=== PATIENT | female | born 1975 ===

== ENCOUNTER 2021-07-21 00:26 | Outpatient (CLI) | payer MEDICAID, SELFPAY ==
--- NOTE | 2021-07-21 08:30 | DI.NM_ITS ---
Exam(s) NM HEPATOBILIARY SCAN GRP EXAM: NM HEPATOBILIARY SCAN GRP CLINICAL HISTORY: ABD PAIN, R10.9. TECHNIQUE: Nuclear hepatobiliary imaging was performed with IV technetium 99 mebrofenin-5 mCi This patient has apparent not had a prior ultrasound COMPARISON: No relevant prior studies FINDINGS: There is normal uptake and excretion of radiopharmaceutical by the liver. There is, however, no activity seen within the gallbladder lumen out till 2 hours. CCK was not administered Radiopharmaceutical it would be seen down the CBD and into the duodenum. IMPRESSION: There is no radiopharmaceutical activity seen in the gallbladder lumen at 2 hours post injection. Th is implies obstruction of the cystic duct.
== END 2021-07-21 00:46 ==
PROVIDERS: Visit Provider Student in an Organized Health Care Education/Training Program
DX: R10.11 Right upper quadrant pain (principal); K80.21 Calculus of gallbladder without cholecystitis with obstruction
CPT/HCPCS: 78227